=== PATIENT | female | born 1940 | race Caucasian/White ===

== ENCOUNTER 2017-07-02 09:43 | Emergency (ER) | payer MEDICARE, BC ==
[~2017-07-02] VITALS: Ht 160 cm; Wt 62.3 kg
[~2017-07-02 09:43] MED LIST: ALBUTEROL SULFAT8 MG; ALDACTONE 25MG25 M1 PO; ALPHAG-P-0.1-5ML OS; AMLODIPINE BES2.5 MG PO; ASPIRIN 32325 MG/TAB PO; ATROVENT INHALE14 GM IH; BEVESPI AEROS10.7 GM IH; COMBIRESP IH; FLONASE NASAL S16 GM NS; ISOPTIN SR240 MG PO; LISINOPRIL10 MG PO; LUMIGAN EYE GTTS OP; LUMIGAN EYE GTTS OU; NORVASC2.5 MG PO; PERFOROMIS20 MCG/2 M IH; PLAVIX 75MG TAB75 MG PO; PROAIR INHALER; RHINOCORT0.032 MG/1 NS; SIMVASTATIN20 MG PO; SPIRIVA18 MCG IH; THEO-DUR 2200 MG/TAB PO; THEODUR PO; TOPROL XL25 MG PO; VENTOLIN0.09 MG IH; XALATAN EYE DROPS OU; XOPENEX HF0.045 MG/A IH; XOPENEX1.25 MG/3 IH; ZOCOR 40MG40 MG PO; ZOCOR PO
[2017-07-02 11:29] LABS: BASO % 0.9 % (0.0-2.0); EOS # 0.1 (0.0-0.7); EOS % 2.6 % (0-4.0); GRAN # 2.9 (1.4-6.5); GRAN % 63.3 % (42.2-75.2); HEMATOCRIT 38.7 % (37.0-47.0); LYMPH # 1.1 (1.2-3.4); LYMPH % 24.9 % (20.0-51.0); MEAN CELL VOLUME 92 fl (80.0-100.0); MEAN CORPUSCULAR HEMOGLOBIN 31 pg (27.0-31.0); MEAN CORPUSCULAR HGB CONC 34 g/dl (33.0-37.0); MEAN PLATELET VOLUME 9.5 fl (7.4-10.4); MONO # 0.4 (0.1-0.6); MONO % 8.1 % (1.7-9.3); PLATELET COUNT 328 K/mm3 (130-400); RED BLOOD COUNT 4.21 M/mm3 (4.10-5.30); REDCELL DISTRIBUTION WIDTH-CV 13.5 % (11.5-14.5); WHITE BLOOD COUNT 4.6 K/mm3 (4.8-10.8)
[2017-07-02 11:39] LABS: ADJUSTED CALCIUM 9.4 mg/dL (8.4-10.2); ALBUMIN 4.3 gm/dL (3.5-5.0); BILIRUBIN,TOTAL 0.6 mg/dL (0.0-1.0); CALCIUM 9.6 mg/dL (8.4-10.2); CREATININE, serum 0.72 mg/dL (0.52-1.25); POTASSIUM 4.1 mmol/L (3.4-5.0); TOTAL PROTEIN 7.4 gm/dL (6.4-8.2)
[2017-07-02] MEDS ORDERED: PREDNISONE20 MG PO (13:16)
[2017-07-02] MEDS ORDERED: LEVAQUIN 750MG750 M1 PO (13:16)
[2017-07-02 13:38] VITALS: BP 141/71; PULSE 87; TEMP 98.5
== END 2017-07-02 13:50 | disposition home or self-care (01) ==
LOC: COL.ER 09:43
PROVIDERS: Emergency Medicine
DX: R06.02 Shortness of breath (principal); R05 Cough; R91.8 Other nonspecific abnormal finding of lung field; J44.9 Chronic obstructive pulmonary disease, unspecified; Z99.81 Dependence on supplemental oxygen; I10 Essential (primary) hypertension; E78.5 Hyperlipidemia, unspecified; R91.1 Solitary pulmonary nodule; Z95.5 Presence of coronary angioplasty implant and graft
CPT/HCPCS: J7512

== ENCOUNTER → 2017-08-22 | Outpatient (CLI) | payer MEDICARE, BC ==
[~2017-08-22] MED LIST changes: +LEVAQUIN 750MG750 M1 PO; +PREDNISONE20 MG PO
== END ==
LOC: COL.RAD 08:56
DX: I71.02 Dissection of abdominal aorta (principal)
CPT/HCPCS: Q9967

== ENCOUNTER 2018-02-19 12:02 | Day surgery (SDC) | payer MEDICARE, BC ==
[~2018-02-19] VITALS: Ht 160.1 cm; Wt 61.0 kg
[2018-02-19] VITALS (9 sets, daily range): BP systolic 113–149; BP diastolic 51–93; PULSE 72–84; TEMP 97.6
[2018-02-19] MEDS ORDERED: ASPIRIN E.C. 8181 MG PO (12:56)
[2018-02-19] MEDS ORDERED: BROVANA15 MCG/2 M IH (12:56)
[2018-02-19] MEDS ORDERED: INCRUSE EL62.5 MCG/A IH (12:57)
[2018-02-19 12:58] LABS: CALCIUM 9.8 mg/dL (8.4-10.2); HEMATOCRIT 40.9 % (37.0-47.0); MEAN CELL VOLUME 94 fl (80.0-100.0); MEAN CORPUSCULAR HEMOGLOBIN 32 pg (27.0-31.0); MEAN CORPUSCULAR HGB CONC 34 g/dl (33.0-37.0); MEAN PLATELET VOLUME 9.7 fl (7.4-10.4); PLATELET COUNT 346 K/mm3 (130-400); POTASSIUM 3.9 mmol/L (3.4-5.0); RED BLOOD COUNT 4.37 M/mm3 (4.10-5.30); REDCELL DISTRIBUTION WIDTH-CV 12.9 % (11.5-14.5)
[2018-02-19 13:30] LABS: PROTHROMBIN TIME 11.6 SECONDS (9.7-12.8)
[2018-02-19 14:48] LABS: ARTERIAL BLD GAS O2 SATURATION 97.5 % (92-100); ARTERIAL BLD GAS TCO2 CT 24.8; ARTERIAL BLOOD GAS BASE EXCESS -0.9 (-2-2); ARTERIAL BLOOD GAS HCO3 23.6 meq/L (22-26); ARTERIAL BLOOD GAS PCO2 38.7 mmHg (35-45); ARTERIAL BLOOD GAS PO2 112.4 mmHg (80-100)
== END 2018-02-19 18:22 | disposition home or self-care (01) ==
LOC: COL.CAR 12:02
PROVIDERS: Internal Medicine Interventional Cardiology
DX: I25.119 Atherosclerotic heart disease of native coronary artery with unspecified angina pectoris (principal); R94.39 Abnormal result of other cardiovascular function study; J44.9 Chronic obstructive pulmonary disease, unspecified; I10 Essential (primary) hypertension; I08.0 Rheumatic disorders of both mitral and aortic valves; R60.0 Localized edema; Z79.51 Long term (current) use of inhaled steroids; Z82.3 Family history of stroke
CPT/HCPCS: C1760; C1894; J3010; Q9967

== ENCOUNTER 2018-11-09 23:44 | Inpatient (IN) | payer MEDICARE, BC ==
[~2018-11-09] VITALS: Ht 160 cm; Wt 61.4 kg
[~2018-11-09 23:44] MED LIST changes: +ASPIRIN E.C. 8181 MG PO; +BROVANA15 MCG/2 M IH; +CEFTIN500 MG PO; +DOXYCYCLINE HY100 MG PO; +INCRUSE EL62.5 MCG/A IH; +ISOPTIN SR180 M1 PO; +PREDNISONE10 MG PO; +PROAIR HFA0.09 MG/AC IH; -THEO-DUR 2200 MG/TAB PO; +UNIPHYL 400MG400 MG PO
[2018-11-10] VITALS (7 sets, daily range): BP systolic 106–128; BP diastolic 55–79; PULSE 65–125; TEMP 97.4–98
[2018-11-10 00:32] LABS: BASO % 0.2 % (0.0-2.0); EOS # 0.1 (0.0-0.7); EOS % 0.7 % (0-4.0); GRAN # 10.5 (1.4-6.5); HEMATOCRIT 46.9 % (37.0-47.0); HEMOGLOBIN 15.9 g/dl (12.5-16.0); LYMPH # 1.1 (1.2-3.4); LYMPH % 9.1 % (20.0-51.0); MEAN CELL VOLUME 95 fl (80.0-100.0); MEAN CORPUSCULAR HEMOGLOBIN 32 pg (27.0-31.0); MEAN CORPUSCULAR HGB CONC 34 g/dl (33.0-37.0); MEAN PLATELET VOLUME 9.8 fl (7.4-10.4); MONO # 0.7 (0.1-0.6); MONO % 5.7 % (1.7-9.3); PLATELET COUNT 284 K/mm3 (130-400); RED BLOOD COUNT 4.94 M/mm3 (4.10-5.30); REDCELL DISTRIBUTION WIDTH-CV 13.1 % (11.5-14.5)
[2018-11-10 00:42] LABS: ALANINE AMINOTRANSFERASE 38 U/L (9-52); ALBUMIN 4.6 gm/dL (3.5-5.0); ALKALINE PHOSPHATASE 82 U/L (50-136); ANION GAP 10 mmol/L (7-16); AST,SGOT 30 U/L (15-37); BILIRUBIN,TOTAL 0.6 mg/dL (0.0-1.0); BLOOD UREA NITROGEN 21 mg/dL (7-17); CALCIUM 9.9 mg/dL (8.4-10.2); CARBON DIOXIDE 30 mmol/L (22-30); CHLORIDE 95 mmol/L (98-107); CREATININE, serum 0.97 mg/dL (0.52-1.25); GLUCOSE 142 mg/dL (74-106); POTASSIUM 4.8 mmol/L (3.4-5.0); SODIUM 135 mmol/L (137-145); TOTAL PROTEIN 7.6 gm/dL (6.4-8.2)
[2018-11-10 00:48] LABS: ARTERIAL BLD GAS O2 SATURATION 97.2 % (92-100); ARTERIAL BLD GAS TCO2 CT 28.3; ARTERIAL BLOOD GAS BASE EXCESS 1.5 (-2-2); ARTERIAL BLOOD GAS HCO3 26.9 meq/L (22-26); ARTERIAL BLOOD GAS PCO2 45.1 mmHg (35-45); ARTERIAL BLOOD GAS PO2 98.9 mmHg (80-100); ARTERIAL BLOOD GAS pH 7.39 (7.35-7.45)
[2018-11-10 01:03] LABS: TROPONIN-I < 0.012 ng/mL (0.000-0.034)
[2018-11-10] MEDS ORDERED: ATIVAN 0.50.5 MG/TAB PO (02:01)
--- NOTE | 2018-11-10 02:42 | NUR ---
PT HAS RED BLOTCHES ON BILATERAL FEET/TOES. PT REPORTS THE SPOTS TO BE HEALING. PT CURRENTLY RESTING IN BED. WITH HOB ELEVATED 45 DEGREES. NO NEEDS AT THIS TIME. RESPIRATORY THERAPY WITH PT NOW
--- NOTE | 2018-11-10 09:15 | NUR ---
Assessment completed, alert/oriented, vital signs stable, denies pain, patient was just up to restroom and is very short of breath, she reports her activity intolerance is worse than her baseline, I have notified hospitalist of her condition, lungs are diminished with exp wheezing noted, heart RRR, distal pulses are palpable, a.m meds given, will continue to monitor
--- NOTE | 2018-11-10 15:11 | NUR ---
SW met with patient at bedside. Patient reports that she would like to go home upon DC. Patient reports that she was recently here on [place] years and that nothing has change other than her breathing. Patient reports that use of the wheelchair and O2. Patient reports that PCP Dr. Cota. DPOA on file with as proxy for health care. No additonal needs identified. PT denies home health care.
--- NOTE | 2018-11-10 20:30 | NUR ---
Shift assessment complete. Pt resting in bed awake, a&o, cooperative c cares. Pt denies pain, increased SOB or other c/o. INT patent. Tele in place. O2 at 3L per NC (base). Pt denies needs at this time. Call light in reach, will monitor.
[2018-11-11 03:14] VITALS: BP 115/55; PULSE 91; TEMP 97.8
[2018-11-11 06:02] LABS: MEAN CELL VOLUME 95 fl (80.0-100.0); MEAN CORPUSCULAR HGB CONC 34 g/dl (33.0-37.0); MEAN PLATELET VOLUME 9.6 fl (7.4-10.4); PLATELET COUNT 260 K/mm3 (130-400); RED BLOOD COUNT 3.89 M/mm3 (4.10-5.30); REDCELL DISTRIBUTION WIDTH-CV 13.2 % (11.5-14.5)
[2018-11-11 06:11] LABS: HEMATOCRIT 36.8 % (37.0-47.0); HEMOGLOBIN 12.6 g/dl (12.5-16.0); MEAN CORPUSCULAR HEMOGLOBIN 32 pg (27.0-31.0)
[2018-11-11 06:20] LABS: CALCIUM 9.2 mg/dL (8.4-10.2); CREATININE, serum 0.97 mg/dL (0.52-1.25); POTASSIUM 4.7 mmol/L (3.4-5.0)
[2018-11-11 07:25] LABS: BAND 1 % (0-10); LYMPHOCYTE 3 % (20.0-51.0); NEUTROPHILS 94 % (42.0-75.2)
[2018-11-11 07:28] LABS: PLATELET ESTIMATE NORMAL (NORMAL)
[2018-11-11 07:39] VITALS: BP 111/53; PULSE 100; TEMP 98.4
--- NOTE | 2018-11-11 09:00 | NUR ---
Assessment complete. Pt sitting up in bed, A&O x 3. Breath sounds coarse, O2 at 3 L/min via NC. Pt with dyspnea on exertion, intermittently at rest. Pt denies pain. Saline lock IV to left hand without s/s of complications. No further needs reported. Call light in reach.
--- NOTE | 2018-11-11 11:31 | NUR ---
NATALYA met with patient during clinical rounding and spoke with patient and family after. NATALYA provided the different options of [facility]ty hospitals in [place]. [facility]. NATALYA called khadra and made referral. He said he can meet with them tomorrow around 3/330 pm. NATALYA will continue to follow.
[2018-11-11 11:33] VITALS: BP 118/57; PULSE 104; TEMP 97.5
[2018-11-11 15:34] VITALS: BP 129/59; PULSE 115; TEMP 97.7
--- NOTE | 2018-11-11 18:35 | NUR ---
Pt sitting up in bed with family, eating supper, denies pain or needs at this time. Sched abx administered per orders. Call light in reach.
--- NOTE | 2018-11-11 19:20 | NUR ---
PT RINSED OUT MOUTH AFTER TX.
[2018-11-11 20:26] VITALS: BP 140/62; PULSE 110; TEMP 97.8
--- NOTE | 2018-11-11 22:13 | NUR ---
Completed PT assessment and cares; PT tolerated medication and cares well. PT reported bilateral hand cramping; PT A&Ox3, BS active x4, coarse lung sound throught with diminished bases; PT able to toilet x1 assist to bedside commode, all pulses readily palpable. PT able to self administer eye care drops. Daughter in room at beginning of shift, although did not stay night. PT denied further needs at completion of care; Call light in reach at bedside; Will continue to monitor. CDA
--- NOTE | 2018-11-11 22:34 | NUR ---
PT TRILOGY SETUP AND HOOKED UP TO 3L BLED IN. PT STATES SHE WILL PUT HERSELF ON WHEN READY. PT HAS STRONG LOOSE NONPRODUCTIVE COUGH. PT DOING ACAPELLA BUT NOT HELPING.
[2018-11-12 05:12] VITALS: BP 94/55; PULSE 87; TEMP 97.7
--- NOTE | 2018-11-12 06:30 | NUR ---
PT rested well throughout night. Tolerated morning medication well. No significant changes. PT denies further needs at time of exit. Call light placed within reach. CDA
--- NOTE | 2018-11-12 07:26 | NUR ---
Assessment completed, alert/oriented, vital signs stable, patient reports "feeling about the same today", no significatn resp.distress noted while at rest, she does however get dypnic very easily even just with conversation, her lungs are clear but very dimninished all throughout, has a non-productive cough- AFB cx ordered and will collect if a specimen is available, still on basline 3L. o2 and wearing Tr[employer] at night, heart RRR/distal pulses are palpable, she is sitting up in bed an [facility]
[2018-11-12 07:28] VITALS: BP 121/59; PULSE 95; TEMP 97.6
[2018-11-12 08:25] LABS: CALCIUM 9.2 mg/dL (8.4-10.2); CREATININE, serum 0.79 mg/dL (0.52-1.25); POTASSIUM 4.6 mmol/L (3.4-5.0)
--- NOTE | 2018-11-12 10:16 | NUR ---
Follow up visit from the center mgr. No needs right now.
[2018-11-12 11:39] VITALS: BP 119/54; PULSE 107; TEMP 98.4
--- NOTE | 2018-11-12 14:43 | NUR ---
Jason from [facility] here to meet with patient. SW provided clinical update.
--- NOTE | 2018-11-12 14:59 | NUR ---
PT RESTING IN BED ON 3 LPM NC. SPO2 95% O2 TURNED OFF, PT CONVERSING WITH RT APPROX 10 MINUTES WITH SPO2 90-91% PT ASKED TO SIT UP ON EDGE OF BED ON ROOM AIR, SPO2 DROPPED TO 85% O2 BACK ON @ 3 LPM PT BACK IN BED AND GIVEN BREATHING TX. FEELING BETTER. MORE RELAXED AND BREATHING EASIER POST TX. LOOSE CUFF STITCHER COUGH.
[2018-11-12 15:35] VITALS: BP 133/52; PULSE 107; TEMP 98
--- NOTE | 2018-11-12 19:02 | NUR ---
PT RINSED OUT MOUTH AFTER TX.
[2018-11-12 20:40] VITALS: BP 107/80; PULSE 106; TEMP 98
--- NOTE | 2018-11-12 22:30 | NUR ---
Completed assessment and medication administraction for PT; PT A&Ox3, BS active x4, lungs diminished throughout, HRRR, IV SL LT hand, PT educated on D/C to [facility] on [facility] at 1100 with decreased anxiety; PT and family reported understanding, PT able to AMB to bedside commode for toileting, severe intolerance to distance AMB; PT able to tolerate cares and medication well; PT offered snack and continues O2 NC 3L and Trilogy vent at HS; AFB cultures pending. Call light placed within reach; Will continues to monitor. CDA
[2018-11-13 00:16] VITALS: BP 119/62; PULSE 94; TEMP 97.1
[2018-11-13 04:47] VITALS: BP 115/61; PULSE 94; TEMP 98
--- NOTE | 2018-11-13 06:29 | NUR ---
Uneventful night with PT; PT rested well and tolerated medications, treatments, and intermittent interruptions well. PT reminded of pending D/C to [facility] in [place] at 1100. No further needs at time of exit; call light placed within reach; Pend report to dayshift. CDA
--- NOTE | 2018-11-13 08:40 | NUR ---
Pt is A+Ox3, pleasant, denies pain, has SOB at rest. Lungs are wheezey adn tight throughout, 3 L oxygen via NC applied. Pt unable to move much or oxygenation drops. No sputum production with active cough. Physical assessment compelted. INT to LH s redness/swelling, flushes easily/ call light in reach no furthe reeds
[2018-11-13] MEDS ORDERED: MONODOX100 PO (08:53)
[2018-11-13] MEDS ORDERED: NYSTATIN OR100 MU/ML PO (08:54)
[2018-11-13] MEDS ORDERED: ISOPTIN SR180 M1 PO (08:55)
[2018-11-13] MEDS ORDERED: ALDACTONE 25MG25 M1 PO (08:55)
[2018-11-13] MEDS ORDERED: IPRATROPIUM BROM3 M1 IH (08:55)
[2018-11-13] MEDS ORDERED: KLONOPIN 0.5MG0.5 MG PO (08:56)
[2018-11-13] MEDS ORDERED: MUCINEX1200 MG PO (08:56)
[2018-11-13] MEDS ORDERED: PREDNISONE20 MG PO (08:57)
[2018-11-13] MEDS ORDERED: DALIRESP500 MCG PO (08:57)
[2018-11-13 09:01] VITALS: BP 111/48; PULSE 104; TEMP 98
--- NOTE | 2018-11-13 09:23 | NUR ---
SW met with patient to present IM and verbally discuss the contents. Patient was agreeable and signed the form. She reports her family knows she will be transported to [facility] at 11am. SW obtained ambulance forms and called to set up transport time. Patient will be going to room [address] Emre obregon. Nurse to nurse number [phone]. Discharge orders faxed
[2018-11-13 11:22] VITALS: BP 112/58; PULSE 100; TEMP 98.1
[2018-11-13 13:17] VITALS: BP 112/58; PULSE 100; TEMP 98.1
--- NOTE | 2018-11-13 14:23 | NUR ---
pT left facility via EMS, personal belongigns accompanying
--- NOTE | 2018-11-13 14:34 | NUR ---
Report called to Yuan JAMES at [facility] in . All quesitons answered
== END 2018-11-13 14:34 | DRG 191 ==
LOC: COL.ER 23:44 → MEDICAL 11-10 01:06
PROVIDERS: Emergency Medicine; Nurse Practitioner Family; Physician Assistant; ADMIT Internal Medicine Pulmonary Disease
DX: J44.1 Chronic obstructive pulmonary disease with (acute) exacerbation (principal); J96.10 Chronic respiratory failure, unspecified whether with hypoxia or hypercapnia; J96.11 Chronic respiratory failure with hypoxia; B37.0 Candidal stomatitis; F41.9 Anxiety disorder, unspecified; I25.10 Atherosclerotic heart disease of native coronary artery without angina pectoris; I10 Essential (primary) hypertension; E78.5 Hyperlipidemia, unspecified; Z95.5 Presence of coronary angioplasty implant and graft; Z87.891 Personal history of nicotine dependence; R13.10 Dysphagia, unspecified
CPT/HCPCS: 99223-AI; 99232-AI; 99233-AI; A9284; J1650; J1956; J2920; J2930; J7030; J7512

== ENCOUNTER 2021-03-31 12:45 | Outpatient (RCR) | payer MEDICARE, BC ==
[~2021-03-31 12:45] MED LIST changes: +ATIVAN 0.50.5 MG/TAB PO; +DALIRESP500 MCG PO; +IPRATROPIUM BROM3 M1 IH; +KLONOPIN 0.5MG0.5 MG PO; +MONODOX100 PO; +MUCINEX1200 MG PO; +NYSTATIN OR100 MU/ML PO
== END 2021-06-29 | disposition home or self-care (01) ==
LOC: WSST
DX: J96.90 Respiratory failure, unspecified, unspecified whether with hypoxia or hypercapnia (principal)

== ENCOUNTER → 2021-04-06 | Outpatient (CLI) | payer MEDICARE, BC ==
[~2021-04-06] MED LIST changes: +DOXYCYCLINE 10100 MG PO; +LANOXIN 0.120.125 MG PO; +LASIX 20MG TABL20 MG PO; +PREDNISONE50 MG PO; +PULMICORT R1 MG/2 ML IH; +SENNA-LAX8.6 MG PO; +TYLENOL 500MG500 MG PO; +XOPENEX 1.1.25 MG/3 IH
== END ==
LOC: COL.RAD 08:13
DX: J96.90 Respiratory failure, unspecified, unspecified whether with hypoxia or hypercapnia (principal)

== ENCOUNTER 2021-07-13 11:39 | Emergency (ER) | payer MEDICARE, BC ==
[~2021-07-13] VITALS: Ht 160 cm; Wt 49.5 kg
[~2021-07-13 11:39] MED LIST changes: -DOXYCYCLINE 10100 MG PO; -LANOXIN 0.120.125 MG PO; -LASIX 20MG TABL20 MG PO; -PREDNISONE50 MG PO; -PULMICORT R1 MG/2 ML IH; -SENNA-LAX8.6 MG PO; -TYLENOL 500MG500 MG PO; -XOPENEX 1.1.25 MG/3 IH
[2021-07-13 11:57] VITALS: TEMP 98.1
[2021-07-13 13:22] LABS: BASO # 0.1 (0.0-0.2); BASO % 0.9 % (0.0-2.0); EOS # 0.2 (0.0-0.7); GRAN # 3.9 (1.4-6.5); GRAN % 68.3 % (42.2-75.2); HEMATOCRIT 38.4 % (37.0-47.0); HEMOGLOBIN 12.9 g/dl (12.5-16.0); LYMPH # 1.2 (1.2-3.4); LYMPH % 20.2 % (20.0-51.0); MEAN CELL VOLUME 91 fl (80.0-100.0); MEAN CORPUSCULAR HEMOGLOBIN 31 pg (27.0-31.0); MEAN CORPUSCULAR HGB CONC 34 g/dl (33.0-37.0); MEAN PLATELET VOLUME 9.5 fl (7.4-10.4); MONO # 0.4 (0.1-0.6); MONO % 7.4 % (1.7-9.3); PLATELET COUNT 344 K/mm3 (130-400); REDCELL DISTRIBUTION WIDTH-CV 14.2 % (11.5-14.5)
[2021-07-13 13:36] LABS: ALANINE AMINOTRANSFERASE 18 U/L (4-34); ALBUMIN 4.4 gm/dL (3.5-5.0); ALKALINE PHOSPHATASE 125 U/L (50-136); ANION GAP 7 mmol/L (7-16); AST,SGOT 34 U/L (15-37); BILIRUBIN,TOTAL 0.4 mg/dL (0.0-1.0); BLOOD UREA NITROGEN 13 mg/dL (7-17); CALCIUM 9.5 mg/dL (8.4-10.2); CARBON DIOXIDE 31 mmol/L (22-30); CHLORIDE 104 mmol/L (98-107); CREATININE, serum 0.73 (0.52-1.25); GLUCOSE 97 mg/dL (74-106); POTASSIUM 3.9 mmol/L (3.4-5.0); SODIUM 141 mmol/L (137-145); TOTAL PROTEIN 7.5 gm/dL (6.4-8.2)
[2021-07-13 13:51] LABS: TROPONIN-I < 0.012 ng/mL (0.000-0.035)
[2021-07-13] MEDS ORDERED: PREDNISONE50 MG PO (13:53)
[2021-07-13] MEDS ORDERED: DOXYCYCLINE 10100 MG PO (13:54)
[2021-07-13 14:14] VITALS: BP 179/87; PULSE 87
== END 2021-07-13 14:20 | disposition home or self-care (01) ==
LOC: COL.ER 11:39
PROVIDERS: Emergency Medicine
DX: J44.1 Chronic obstructive pulmonary disease with (acute) exacerbation (principal); J18.9 Pneumonia, unspecified organism; I25.10 Atherosclerotic heart disease of native coronary artery without angina pectoris; I10 Essential (primary) hypertension; E78.5 Hyperlipidemia, unspecified; Z20.822 Contact with and (suspected) exposure to COVID-19; Z87.891 Personal history of nicotine dependence; Z79.899 Other long term (current) drug therapy; Z79.52 Long term (current) use of systemic steroids
CPT/HCPCS: J7512

== ENCOUNTER 2021-09-11 20:29 | Inpatient (IN) | payer MEDICARE, BC ==
[~2021-09-11] VITALS: Ht 160 cm; Wt 45.0 kg
[~2021-09-11 20:29] MED LIST changes: +DOXYCYCLINE 10100 MG PO; +PREDNISONE50 MG PO
[2021-09-11 21:29] LABS: BASO % 0.4 % (0.0-2.0); EOS # 0.1 K/mm3 (0.0-0.7); EOS % 1.3 % (0-4.0); GRAN # 7.3 K/mm3 (1.4-6.5); GRAN % 76.1 % (42.2-75.2); HEMOGLOBIN 13.2 g/dl (12.5-16.0); LYMPH # 1.2 K/mm3 (1.2-3.4); LYMPH % 11.9 % (20.0-51.0); MEAN CELL VOLUME 93 fl (80.0-100.0); MEAN CORPUSCULAR HEMOGLOBIN 31 pg (27.0-31.0); MEAN CORPUSCULAR HGB CONC 33 g/dl (33.0-37.0); MEAN PLATELET VOLUME 8.9 fl (7.4-10.4); PLATELET COUNT 624 K/mm3 (130-400); RED BLOOD COUNT 4.32 M/mm3 (4.10-5.30); REDCELL DISTRIBUTION WIDTH-CV 14.6 % (11.5-14.5)
[2021-09-11 21:48] LABS: ALBUMIN 3.1 gm/dL (3.4-4.8); BILIRUBIN,TOTAL 0.3 mg/dL (0.2-1.2); CALCIUM 9.7 mg/dL (8.4-10.2); CREATININE, serum 1.12 mg/dL (0.57-1.11); TOTAL PROTEIN 6.9 gm/dL (6.2-8.1)
[2021-09-11 21:53] LABS: TROPONIN-I 0.013 ng/mL (0.00-0.033)
[2021-09-11 23:30] LABS: ARTERIAL BLD GAS O2 SATURATION 97.5 % (92-100); ARTERIAL BLD GAS TCO2 CT 22.6; ARTERIAL BLOOD GAS BASE EXCESS -2.4 (-2-2); ARTERIAL BLOOD GAS HCO3 21.6 meq/L (22-26); ARTERIAL BLOOD GAS PCO2 34.5 mmHg (35-45); ARTERIAL BLOOD GAS PO2 102.7 mmHg (80-100); ARTERIAL BLOOD GAS pH 7.41 (7.35-7.45)
[2021-09-12 01:09] VITALS: BP 142/59; PULSE 110; TEMP 98.3
[2021-09-12] MEDS ORDERED: LANOXIN 0.120.125 MG PO (01:49)
[2021-09-12] MEDS ORDERED: ALDACTONE 25MG25 M1 PO (01:50)
[2021-09-12 03:37] VITALS: BP 114/58; PULSE 89; TEMP 98.6
[2021-09-12 06:58] LABS: HEMOGLOBIN 12.1 g/dl (12.5-16.0); MEAN CELL VOLUME 91 fl (80.0-100.0); MEAN CORPUSCULAR HEMOGLOBIN 30 pg (27.0-31.0); MEAN CORPUSCULAR HGB CONC 33 g/dl (33.0-37.0); MEAN PLATELET VOLUME 9.5 fl (7.4-10.4); PLATELET COUNT 607 K/mm3 (130-400); RED BLOOD COUNT 4.01 M/mm3 (4.10-5.30); REDCELL DISTRIBUTION WIDTH-CV 14.6 % (11.5-14.5)
[2021-09-12 07:01] LABS: HEMATOCRIT 36.5 % (37.0-47.0)
[2021-09-12 07:13] LABS: CALCIUM 9.1 mg/dL (8.4-10.2); CREATININE, serum 0.73 mg/dL (0.57-1.11); POTASSIUM 4.4 mmol/L (3.5-4.5)
--- NOTE | 2021-09-12 07:23 | NUR ---
MILLIE BLACK CALLED FOR UPDATE. VERBAL CONSENT OBTAINED FROM PT TO GIVE INFORMATION. PRIVACY CODE GIVEN FOR FUTURE REFENCE. UPDATE GIVEN TO BEST OF ABILITY.
[2021-09-12 07:40] LABS: NEUTROPHILS 87 % (42.0-75.2)
[2021-09-12 07:41] LABS: LYMPHOCYTE 12 % (20.0-51.0); PLATELET ESTIMATE INCREASED (NORMAL)
[2021-09-12 08:12] VITALS: BP 118/56; PULSE 102; TEMP 97.8
--- NOTE | 2021-09-12 10:45 | NUR ---
PT ALERT AND ORIENTED. PT HAS DIMISHED LUNGS IN ALL LOBES, DENIES SOA AT REST. PT REPORTS SOME SOA WITH EXERTION. PT REPORTS SIGNIFICANT WEIGHT LOSS. PT HAS RED COCCYX, STATES WILL MOVE INDEPENDENTLY, REFUSING PILLOW TO ALLEVIATE PRESSURE. PT HAS REDDENED FEET, PULSES 2+, CAP REFILL <3S. PT IV INFILTRATION NOTED. NO OTHER NEEDS AT THIS TIME.
[2021-09-12 12:28] VITALS: BP 112/62; PULSE 90; TEMP 98.1
--- NOTE | 2021-09-12 14:29 | NUR ---
house worker met with patient at bedside to discuss discharge plan. Patient reports that she lives at home with her Noble ([phone]). Patient reports that up until a few weeks ago she was fully independent with her activities of daily living. States her granddaughter lives next door to them and has been coming over to help with ADL's. Patient states that she only uses a walker when she leaves the house and that it is used more to help carry her portable concentrator around. Patient does use NC O2 and a Trilogy which is supplied through [facility]. PCP is Dr. Cota and she see's as a advertising account manager. She utilizes [facility] for perscription needs with no difficulty to cost. Patient does have a DPOA- established and the hospital has a copy of it on file listing her and her daughter Yoli ([phone]) as her agents. Patient reports that she has two daughters that live in [facility] along with her granddaughter that lives next door to her. Feels like they support her and her enough that she will not need HH services. Does report to sending her to [facility] a few years ago and is open to going back there, but will need to speak with her family. Patient used to receive her oxygen through [facility], then switch to [facility]. She has been increasingly unhappy with [facility] and when her Trilogy malfunctioned, she made the decision that she wants to switch back to [facility] for her O2 supplies. Mannie with [facility] contacted and he informed me that the patient's daughter had stopped by this morning to discuss the desire to change companies. Brian with [facility] has plans to stop by and speak with Alanis Christensen this afternoon. Discharge plan: Pending PT/OT issa
--- NOTE | 2021-09-12 14:34 | NUR ---
PT STATES HAVING SOME MILD SOA, CHECKED SPO2 AT 97% WITH 3L O2. PT REPORTS HAVING TALKED EXTENSIVELY WITH SOCIAL WORK, FILTRATION OPERATOR, AND VISITOR. PT REQUESTING TO REST AT THIS TIME. EDUCATED TO NOTIFY THIS RN IF SOA CONTINUES.
--- NOTE | 2021-09-12 14:37 | NUR ---
Initial visit; Patient thanked Subassembler for looking in on her and offering God's blessings, prayer and keeping her in Subassembler's prayers.
--- NOTE | 2021-09-12 15:35 | NUR ---
PT STATES HAVING SOA, SPO2 98% ON 3L O2. PT REQUESTING ANXIETY MEDICATIONS. GIVEN PER ORDERS. WILL CONTINUE TO MONITOR.
[2021-09-12 16:42] VITALS: BP 138/54; PULSE 103; TEMP 98.2
--- NOTE | 2021-09-12 19:10 | NUR ---
Pt continuing on plan of care. Pt SOA monitored. Respiratory therapy notified to help manage SOA. Pt family visited this shift. Pt vital signs remained stable, some sinus tachycardia noted. No significant changes noted in pt this shift. PRN anxiety medications given per orders. Pt able to express needs and converse freely.
[2021-09-12 19:36] VITALS: BP 131/66; PULSE 100; TEMP 98.4
--- NOTE | 2021-09-12 20:33 | NUR ---
Assessment complete. Patient is alert and oriented with no complaints of pain. She wears 3 liters 02; lung sounds are coarse throughout. Pt has steady gait with SBA to the restroom. No edema is noted. Comfort measures provided and call light in reach.
[2021-09-13] VITALS (7 sets, daily range): BP systolic 105–146; BP diastolic 51–64; PULSE 78–98; TEMP 97.6–98.1
[2021-09-13 07:09] LABS: HEMOGLOBIN 11.8 g/dl (12.5-16.0); MEAN CELL VOLUME 93 fl (80.0-100.0); MEAN CORPUSCULAR HEMOGLOBIN 31 pg (27.0-31.0); MEAN CORPUSCULAR HGB CONC 33 g/dl (33.0-37.0); MEAN PLATELET VOLUME 9.7 fl (7.4-10.4); PLATELET COUNT 643 K/mm3 (130-400); RED BLOOD COUNT 3.86 M/mm3 (4.10-5.30); REDCELL DISTRIBUTION WIDTH-CV 14.6 % (11.5-14.5)
[2021-09-13 07:11] LABS: HEMATOCRIT 35.7 % (37.0-47.0)
[2021-09-13 07:33] LABS: ALBUMIN 2.8 gm/dL (3.4-4.8); CALCIUM 9.3 mg/dL (8.4-10.2); CREATININE, serum 0.82 mg/dL (0.57-1.11); MAGNESIUM 2.2 mg/dL (1.6-2.6); PHOSPHOROUS 3.2 mg/dL (2.3-4.7); POTASSIUM 4.3 mmol/L (3.5-4.5)
[2021-09-13 07:46] LABS: BAND 11 % (0-10); LYMPHOCYTE 1 % (20.0-51.0); NEUTROPHILS 87 % (42.0-75.2); PLATELET ESTIMATE INCREASED (NORMAL)
--- NOTE | 2021-09-13 12:50 | NUR ---
PT ALERT AND ORIENTED. PT EXPRESSED ANXIETY THIS AM WITH PROCEDURES AND DOCTOR'S VISITS. PT GIVEN ANXIETY MEDICATIONS PER ORDERS. LUNGS CLEAR TO AUSCULTATION. PT HAS REDDENED FEET, BLANCHABLE, MILD FLAKING NOTED. PT CAP REFILL <3S. pT HAS 1+ PULSES IN DORSALIS PEDIS BILATERALLY. RADIAL AND POSTERIOR TIBIAL 2+ BIALTERALLY. PT STATES EDEMA IN FEET IS IMPROVING. PT FAMILY VISITED THIS AM AT TIME OF ASSESSMENT.
--- NOTE | 2021-09-13 17:01 | NUR ---
Pt continuing on plan of care. Pt family visited this shift. No significant changes noted in pt status. Pt able to ambulate in room. Pt pain managed with prn medications per orders. Pt family asking to be updated with plan of care if any changes should occur. Pt daughter, Yoli kylie([phone]) and Sheila kylie([phone]).
--- NOTE | 2021-09-13 18:11 | NUR ---
PT MISSED HAT FOR INTAKE AND OUTPUT MONITORING. WILL ATTEMPT TO READJUST HAT FOR ACCURATE COLLECTION.
--- NOTE | 2021-09-13 20:00 | NUR ---
Assessment complete. Patient is alert and oriented with no complaints of pain. She wears 3 liters oxygen and is tolerating well. No new concerns at this time. Patient is aware of potential transfer to [facility] in once a bed becomes available. Medications administered and comfort measures provided. Call light in reach.
[2021-09-14 04:23] VITALS: BP 123/58; PULSE 65; TEMP 97.7
[2021-09-14 07:03] LABS: HEMOGLOBIN 11.4 g/dl (12.5-16.0); MEAN CELL VOLUME 91 fl (80.0-100.0); MEAN CORPUSCULAR HEMOGLOBIN 31 pg (27.0-31.0); MEAN CORPUSCULAR HGB CONC 34 g/dl (33.0-37.0); MEAN PLATELET VOLUME 9.8 fl (7.4-10.4); PLATELET COUNT 594 K/mm3 (130-400); RED BLOOD COUNT 3.74 M/mm3 (4.10-5.30); REDCELL DISTRIBUTION WIDTH-CV 14.6 % (11.5-14.5)
[2021-09-14 07:11] LABS: CALCIUM 9.2 mg/dL (8.4-10.2); CREATININE, serum 0.8 mg/dL (0.57-1.11); POTASSIUM 3.9 mmol/L (3.5-4.5)
[2021-09-14 07:41] VITALS: BP 148/59; PULSE 82; TEMP 98
[2021-09-14 07:41] LABS: BAND 11 % (0-10); LYMPHOCYTE 9 % (20.0-51.0); NEUTROPHILS 79 % (42.0-75.2); PLATELET ESTIMATE INCREASED (NORMAL)
[2021-09-14 11:55] VITALS: BP 133/55; PULSE 84; TEMP 97.8
--- NOTE | 2021-09-14 14:37 | NUR ---
PT RETURNED FROM [facility], THE FLUID WAS IN SMALL POCKETS SO US TECH STATED THAT THEY WERE ONLY ABLE TO GET 19ML OFF FOR THE LABS, BUT NO MORE. REPORTED TO JACKELYN JONES. NO OTHER CONCERNS AT THIS TIME.
[2021-09-14 14:50] LABS: PLEURAL FLUID RBC 55000 /mm3 (0-0); PLEURAL FLUID WBC 1179 /mm3
[2021-09-14 14:56] LABS: PLEURAL FLUID APPEARANCE BLOODY; PLEURAL FLUID COLOR RED
--- NOTE | 2021-09-14 16:22 | NUR ---
3Rd Grade Teacher attended clinical rounds with the team and patient to have thoracentesis today. SW will continue to follow for recommendations. PT/OT ordered.
[2021-09-14 16:53] VITALS: BP 132/51; PULSE 100; TEMP 98
--- NOTE | 2021-09-14 20:18 | NUR ---
Assessment complete. Patient is alert and oriented. She is sitting on the edge of the bed and appears SOA; 02 at 3 liters and satting 94%. Patient requests a clonipin for anxiety which is administered now. Comfort measures provided and stayed with patient until she relaxes. Call light in reach.
[2021-09-15 01:37] VITALS: BP 113/56; PULSE 69; TEMP 97.4
[2021-09-15 01:56] VITALS: BP 122/55; PULSE 58; TEMP 97.4
[2021-09-15 06:45] LABS: HEMOGLOBIN 11.5 g/dl (12.5-16.0); MEAN CELL VOLUME 92 fl (80.0-100.0); MEAN CORPUSCULAR HEMOGLOBIN 31 pg (27.0-31.0); MEAN CORPUSCULAR HGB CONC 33 g/dl (33.0-37.0); MEAN PLATELET VOLUME 9.8 fl (7.4-10.4); PLATELET COUNT 583 K/mm3 (130-400); RED BLOOD COUNT 3.73 M/mm3 (4.10-5.30); REDCELL DISTRIBUTION WIDTH-CV 14.7 % (11.5-14.5)
[2021-09-15 06:49] LABS: HEMATOCRIT 34.4 % (37.0-47.0)
[2021-09-15 07:07] LABS: CALCIUM 9.2 mg/dL (8.4-10.2); CREATININE, serum 0.74 mg/dL (0.57-1.11); POTASSIUM 3.7 mmol/L (3.5-4.5)
[2021-09-15 07:19] VITALS: BP 143/74; PULSE 80; TEMP 97.5
--- NOTE | 2021-09-15 07:22 | NUR ---
REPORT RECIEVED FROM ERIKA SANCHEZ. NO SIGNS OF DISTRESS. NO COMPLAINTS OF PAIN OR DYSPNEA. CALL LIGHT WITHIN REACH
[2021-09-15 07:26] LABS: BAND 7 % (0-10); LYMPHOCYTE 4 % (20.0-51.0); NEUTROPHILS 87 % (42.0-75.2); PLATELET ESTIMATE INCREASED (NORMAL)
--- NOTE | 2021-09-15 09:45 | NUR ---
PT ASSESSED. DAUGHTER AT BEDSIDE. NO COMPLAINTS OF PAIN OR DYSPNEA. NO SIGNS OF DISTRESS. CALL LIGHT WITHIN REACH
[2021-09-15] MEDS ORDERED: PREDNISONE10 MG PO ×2 (10:31)
[2021-09-15] MEDS ORDERED: CEFTIN500 MG PO (10:32)
[2021-09-15] MEDS ORDERED: DOXYCYCLINE 10100 MG PO (10:32)
--- NOTE | 2021-09-15 10:42 | NUR ---
Senior Center Director attended clinical rounds with the team and patient to discharge home today. SW met with patient to follow up on discharge plan. Patient states she does not feel she needs Home Health at this time as she has plenty of family support. Patient states she also has an upcoming appointment at [facility] that she needs to get to. SW presented and reviewed IM form with patient who verbalized understanding and provided signature. SW placed form in chart and provided copy to patient.
[2021-09-15 11:13] VITALS: BP 142/59; PULSE 97; TEMP 97.5
--- NOTE | 2021-09-15 15:20 | NUR ---
PT DISCHARGED. IV REMOVED. EDUCATED ON NEW MEICATIONS AND FOLLOW UP APPOINTMENTS. NO QUESTIONS OR CONCERNS.
== END 2021-09-15 15:21 | disposition home or self-care (01) | DRG 193 ==
LOC: COL.ER 20:29 → MEDICAL 22:56
PROVIDERS: Emergency Medicine; Internal Medicine; Physician Assistant; Student in an Organized Health Care Education/Training Program; ADMIT Internal Medicine
PROC: 0W9B3ZZ Drainage of Left Pleural Cavity, Percutaneous Approach (ICD-10-PCS; principal; 2021-09-14)
DX: J18.9 Pneumonia, unspecified organism (principal); E43 Unspecified severe protein-calorie malnutrition; C34.90 Malignant neoplasm of unspecified part of unspecified bronchus or lung; J44.1 Chronic obstructive pulmonary disease with (acute) exacerbation; J91.0 Malignant pleural effusion; J96.12 Chronic respiratory failure with hypercapnia; J96.11 Chronic respiratory failure with hypoxia; Z68.1 Body mass index [BMI] 19.9 or less, adult; J44.0 Chronic obstructive pulmonary disease with (acute) lower respiratory infection; I25.10 Atherosclerotic heart disease of native coronary artery without angina pectoris; Z95.5 Presence of coronary angioplasty implant and graft; I10 Essential (primary) hypertension; F41.9 Anxiety disorder, unspecified; E78.5 Hyperlipidemia, unspecified; Z98.51 Tubal ligation status
CPT/HCPCS: 99223-AI; 99233-AI; 99239; J0696; J1644; J2930; Q9967

== ENCOUNTER 2021-09-18 21:00 | Observation (INO) | payer MEDICARE, BC ==
[~2021-09-18] VITALS: Ht 160 cm; Wt 45.4 kg
[~2021-09-18 21:00] MED LIST changes: +LANOXIN 0.120.125 MG PO
[2021-09-18 21:55] LABS: BASO % 0.2 % (0.0-2.0); EOS # 0.1 K/mm3 (0.0-0.7); EOS % 0.3 % (0-4.0); GRAN # 15.1 K/mm3 (1.4-6.5); GRAN % 87.1 % (42.2-75.2); HEMATOCRIT 44.3 % (37.0-47.0); HEMOGLOBIN 15.1 g/dl (12.5-16.0); LYMPH # 0.8 K/mm3 (1.2-3.4); LYMPH % 4.8 % (20.0-51.0); MEAN CELL VOLUME 90 fl (80.0-100.0); MEAN CORPUSCULAR HEMOGLOBIN 31 pg (27.0-31.0); MEAN CORPUSCULAR HGB CONC 34 g/dl (33.0-37.0); MEAN PLATELET VOLUME 9.2 fl (7.4-10.4); MONO # 1.1 K/mm3 (0.1-0.6); MONO % 6.2 % (1.7-9.3); PLATELET COUNT 572 K/mm3 (130-400); RED BLOOD COUNT 4.94 M/mm3 (4.10-5.30); REDCELL DISTRIBUTION WIDTH-CV 14.6 % (11.5-14.5)
[2021-09-18 22:13] LABS: ALBUMIN 3.4 gm/dL (3.4-4.8); BILIRUBIN,TOTAL 0.4 mg/dL (0.2-1.2); CALCIUM 10.5 mg/dL (8.4-10.2); CREATININE, serum 0.97 mg/dL (0.57-1.11); POTASSIUM 3.8 mmol/L (3.5-4.5); TOTAL PROTEIN 7.3 gm/dL (6.2-8.1)
[2021-09-18 22:45] LABS: COLLECTION METHOD CLEAN CATCH
[2021-09-18 22:53] LABS: PH 6 (5-8); SQUAMOUS EPITHELIAL 0-2 /hpf (0-10); URINE APPEARANCE Clear (CLEAR/HAZY); URINE BACTERIA None Seen (NONE SEEN); URINE BILIRUBIN Negative (NEGATIVE); URINE BLOOD Negative (NEGATIVE); URINE COLOR Straw (YELLOW); URINE GLUCOSE Negative (NEGATIVE); URINE KETONE Negative (NEGATIVE); URINE LEUKOCYTE ESTERASE Negative (NEGATIVE); URINE NITRATE Negative (NEGATIVE); URINE PROTEIN(semi-quant) Negative (NEGATIVE); URINE RBC 0-2 /hpf (0-2); URINE UROBILINOGEN Negative (NEGATIVE)
[2021-09-19] MEDS ORDERED: PULMICORT R1 MG/2 ML IH (00:12)
[2021-09-19] MEDS ORDERED: XOPENEX 1.1.25 MG/3 IH (00:13)
[2021-09-19 01:45] VITALS: BP 182/81; PULSE 109; TEMP 97.6
[2021-09-19] MEDS ORDERED: SENNA-LAX8.6 MG PO (02:25)
[2021-09-19] MEDS ORDERED: TYLENOL 500MG500 MG PO (02:26)
--- NOTE | 2021-09-19 03:43 | NUR ---
81 yo female admitted for further care and management of acute on chronic respiratory failure secondary to COPD with exacerbation and also concern for possible superimposed pneumonia. ht 63in wt 45.5kg SCr 0.97 with estimated CrCl~30 ml/min half life 16.1 hours Plan: Will give an initial loading dose of vancomycin 1000 mg x1 (22 mg/kg); followed by a maintenance regimen of vancomycin 500 mg q12h to target a goal trough of 15-20 mcg/ml. Will follow patient's renal function, micro data, and vancomycin levels as indicated to assess for any necessary changes to regimen. Thank you for this dosing consult.
[2021-09-19 04:32] VITALS: BP 120/56; PULSE 109; TEMP 97.7
--- NOTE | 2021-09-19 05:15 | NUR ---
PT ARRIVED TO FLOOR FROM ED APPROXIMATELY 0130. PT IS PLEASANT AND COOPERATIVE. PT IS A DECENT HISTORIAN. PT ORIENTATED TO ROOM. CALL LIGHT IN REACH, BED IN LOWEST POSITION, WHEELS LOCKED, PT REFUSED GOWN AT THIS TIME. NO OTHER NEEDS
--- NOTE | 2021-09-19 05:17 | NUR ---
APPROXIMATELY 0345 PT ASKED FOR BIPAP TO USE TO SLEEP AT NIGHT. STATED MARCI KAYLAN STATED WE WOULD GET ONE FOR HER. THIS RN TALKED TO RT ABOUT BIPAP, WAS INFORMED THAT CURRENTLY DO NOT HAVE ANY AVAILABLE BIPAPS TO USE. INFORMED PT OF THIS, SHE STATED IT WAS OK, AND THIS RN ASKED IF ANYONE COULD BRING HER TRILOGY IN FROM HOME TO USE DURING STAY. PT STATED TO CALL HER DAUGHTER, MILLIE. THIS RN CALLED DAUGHTER, INFORMED HER OF WHAT WAS HAPPENING TO INCLUDE PT SEEMING TO BE ANXIOUS. HER DAUGHTER STATED THAT THIS IS NORMAL, GIVE KLONDIPINE TO WORK AND CALL HER BACK IF SHE INSISTS ON TRILOGY TONIGHT. THIS RN ASSISTED PT TO RESTROOM. PT STATED THAT SHE COULD NOT BREATH AND WAS UNABLE TO FINISH HER BOWEL MOVEMENT DUE TO THIS. THIS RN TOOK HER SPO2 AND PULSE, NOTED 95% ON 3 L AND HEART RATE WAS IN THE 130s. THIS RN ASSISTED PT IN STANDING, PULLING UP UNDERWEAR AND TAKING OFF PANTS BECAUSE PT STATED SHE WAS HOT. ASSISTED PT BACK TO BED AND PT STARTED BREATHING MORE QUICKLY AND SHALLOW. PT ASKED FOR KLONDIPINE. THIS RN GAVE 0.25 MG PER MAR TO PT. PT REQUESTED THIS RN TO CALL DAUGHTER BACK AND BRING TRILOGY NOW. THIS RN TOLD PT THAT THE MEDICATION NEEDED TIME TO WORK, PT EVENTUALLY LAID BACK IN BED, HEART RATE DECREASED AND PT FELL ASLEEP. DAUGHTER STATED PT WILL BRING TRILOGY IN MORNING. WILL CONTINUE TO MONITOR PT.
--- NOTE | 2021-09-19 06:38 | NUR ---
PT FELL ASLEEP AFTER CLONIPINE, PT STATED SHE FELT MUCH BETTER AND APPRECIATED GIVING TIME FOR MEDICATION TO WORK. PT STATED THAT SHE KNOWS SHE CAN LOSE CONTROL IN THOSE MOMENTS, AND TO PASS ALONG THIS INFORMATION. INFORMED PT THAT DAUGHTER STATED SHE WOULD BE [facility] 0[facility]. PT EXPRESSED RELIEF.
[2021-09-19 06:39] LABS: HEMATOCRIT 40.4 % (37.0-47.0); HEMOGLOBIN 13.3 g/dl (12.5-16.0); MEAN CELL VOLUME 91 fl (80.0-100.0); MEAN CORPUSCULAR HEMOGLOBIN 30 pg (27.0-31.0); MEAN CORPUSCULAR HGB CONC 33 g/dl (33.0-37.0); MEAN PLATELET VOLUME 9.9 fl (7.4-10.4); PLATELET COUNT 487 K/mm3 (130-400); RED BLOOD COUNT 4.42 M/mm3 (4.10-5.30); REDCELL DISTRIBUTION WIDTH-CV 14.6 % (11.5-14.5)
[2021-09-19 06:57] LABS: CALCIUM 9.3 mg/dL (8.4-10.2); CREATININE, serum 0.78 mg/dL (0.57-1.11); POTASSIUM 3.3 mmol/L (3.5-4.5)
[2021-09-19 07:42] LABS: BAND 2 % (0-10); LYMPHOCYTE 1 % (20.0-51.0); NEUTROPHILS 97 % (42.0-75.2); PLATELET ESTIMATE INCREASED (NORMAL)
[2021-09-19 08:19] VITALS: BP 121/45; PULSE 101; TEMP 97.7
--- NOTE | 2021-09-19 08:46 | NUR ---
Scheduled medications given. Shift assessment preformed. Patient currently requiring 3L of O2 via nasal cannula. Dyspnea at rest noted. Lung sounds severely diminished. Patient scaling and flaking of feet noted. Generalized bruising also noted. Patient denies any pain, discomfort, or further needs at this time. Call light in reach. VSS. Patient A&O.
[2021-09-19 12:22] VITALS: BP 121/54; PULSE 91; TEMP 97.9
--- NOTE | 2021-09-19 14:19 | NUR ---
First visit from the production line welder. No needs right now.
[2021-09-19 16:51] VITALS: BP 133/35; PULSE 110; TEMP 97.6
--- NOTE | 2021-09-19 19:49 | NUR ---
Patient has had an uneventful day. Currenlty requiring 3L of O2 via nasal cannula. VSS. Patient A&O. Call light in reach.
[2021-09-19 21:00] VITALS: BP 116/53; PULSE 99; TEMP 97.6
[2021-09-20 00:32] VITALS: BP 107/53; PULSE 75; TEMP 97.6
[2021-09-20 04:51] VITALS: BP 115/48; PULSE 77; TEMP 97.7
[2021-09-20 07:08] LABS: BASO % 0.1 % (0.0-2.0); EOS # 0.2 K/mm3 (0.0-0.7); EOS % 1.2 % (0-4.0); GRAN # 13.8 K/mm3 (1.4-6.5); GRAN % 83.3 % (42.2-75.2); HEMOGLOBIN 11.9 g/dl (12.5-16.0); LYMPH # 1.1 K/mm3 (1.2-3.4); LYMPH % 6.8 % (20.0-51.0); MEAN CELL VOLUME 90 fl (80.0-100.0); MEAN CORPUSCULAR HEMOGLOBIN 30 pg (27.0-31.0); MEAN CORPUSCULAR HGB CONC 34 g/dl (33.0-37.0); MEAN PLATELET VOLUME 9.5 fl (7.4-10.4); MONO # 1.2 K/mm3 (0.1-0.6); MONO % 7.3 % (1.7-9.3); PLATELET COUNT 407 K/mm3 (130-400); RED BLOOD COUNT 3.91 M/mm3 (4.10-5.30); REDCELL DISTRIBUTION WIDTH-CV 15.2 % (11.5-14.5)
[2021-09-20 07:16] LABS: CALCIUM 9.7 mg/dL (8.4-10.2); CREATININE, serum 0.75 mg/dL (0.57-1.11); POTASSIUM 3.9 mmol/L (3.5-4.5)
[2021-09-20 07:19] LABS: HEMATOCRIT 35.3 % (37.0-47.0)
--- NOTE | 2021-09-20 08:39 | NUR ---
Patient resting in bed. Patient had a few bites of breakfast, reports low appetite. When asked about pain, she does deny at this time. States she did have pain after biopsy, but it is improving. Reports her She reports overall feeling better. Edema in her legs resolved. Lung sounds very diminished. She reports being weak, will encourage activity today.
[2021-09-20 08:42] VITALS: BP 120/46; PULSE 96; TEMP 98.5
--- NOTE | 2021-09-20 09:08 | NUR ---
Patient up to the bathroom, standby assist. Dyspnea with exertion. Allyven foam to coccyx,reddness noted. Not open. Patient reports she is trying to reposition herself frequently in bed. She is wanting to rest, I offered to assist with hygiene. She states she had a long night. Patient was given Prn Klonopin per request to prevent anxiety. OT now working with patient. Will monitor.
[2021-09-20] MEDS ORDERED: PREDNISONE10 MG PO (09:29)
[2021-09-20] MEDS ORDERED: CEFTIN500 MG PO (09:45)
[2021-09-20] MEDS ORDERED: DOXYCYCLINE 10100 MG PO (09:46)
[2021-09-20] MEDS ORDERED: LASIX 20MG TABL20 MG PO (09:46)
--- NOTE | 2021-09-20 10:02 | NUR ---
Patient feeling overwhelmed. Hospitalist team rounded. She is feeling unsure about disharge. Social work assisting with discharge planning. Patient daughter called to reviewed. I suggested patient bring in medications and i could throughly go over he medications list & pill and instruct her on what to take and when. She reports last time she left she did not understand her medication list.
--- NOTE | 2021-09-20 10:25 | NUR ---
NATALYA attended clinical rounds. The hospitalist is ready to discharge the patient today. The hospitalist discussed home health vs SNF. The patient declined rehab. She states that she wants to go home. She also declined home health. She reports that she would like to get home with her and see what they can manage. She expressed concerns about her meds and states that she was unsure how t0 set them up when she got home last time. The team informed her how home health can help with this. The patient still declined. She reports that her daughter, Yoli, can help set up her meds and that Yoli could bring them all in today for the RN to help set up her meds. The patient's RN contacted Yoli and Yoli is on her way up to the hospital now. NATALYA then followed up with the patient to discuss discharge plan. The patient lives in [place] with her , Noble (ph#[phone]). She reports independence with ADLs and has a walker, home oxygen, and a trilogy from [facility]. The patient's PCP is Dr. Pierre Cota and she receives her medications [facility]. She reports no difficulties obtaining her meds. The patient's DPOA-HC is in EMR and it designates her and daughter, Yoli (ph#[phone]). NATALYA then reviewed SNF vs home health again. The patient declined rehab. She reports that she wants to go home, but would be open to home health now. She reports that she had home health in the past and believes she used [facility]. She would like to use them again. NATALYA contacted and faxed a referral to Rosemary at [facility]. Rosemary reports that they are able to accept the patient for services. Rosemary reports that they will try and go out and see the patient tomorrow, if not tomorrow then if would be on Sunday, due to giving on . The patient's daughter, Yoli, then arrived to the hospital. Yoli is in agreement to the plan. Yoli reports that her sister is on her way up to the hospital now with the patient's meds for them to sort and go through them and to set up the patient's pill box. The patient's RN was present during this conversation. The patient is to discharge back home with her today, 09/20, with home health services for shelter/PT/OT from [facility]. NATALYA notified and faxed discharge orders to Rosemary at [facility]. No additional needs at this time.
--- NOTE | 2021-09-20 12:15 | NUR ---
Patient ready for discharge. Her family brought in home medications and medication box. I extensively reviewed med list with patient and family. Patient med box set up with patient for the next week day and night, I also set up predisone taper for the following week. I wasted the extra antibioitcs patient will not need. I marked and highlighted list and reviewed with patient & her daughters. Patient seems understanding & glad to be getting home. Social work set up home health. Patient wheeled out with all belongings & home O2. Her daughter taking her home. She is glad to go sit in her recliner.
== END 2021-09-20 12:36 | disposition home health service (06) ==
LOC: COL.ER 21:00 → MEDICAL 23:41
PROVIDERS: Nurse Practitioner Family; Personal Emergency Response Attendant; ADMIT Student in an Organized Health Care Education/Training Program
DX: J44.1 Chronic obstructive pulmonary disease with (acute) exacerbation (principal); J90 Pleural effusion, not elsewhere classified; R91.8 Other nonspecific abnormal finding of lung field; J96.12 Chronic respiratory failure with hypercapnia; J18.9 Pneumonia, unspecified organism; R60.0 Localized edema; I31.3 Pericardial effusion (noninflammatory); E78.5 Hyperlipidemia, unspecified; I10 Essential (primary) hypertension; I25.10 Atherosclerotic heart disease of native coronary artery without angina pectoris; F41.9 Anxiety disorder, unspecified; E43 Unspecified severe protein-calorie malnutrition; Z68.1 Body mass index [BMI] 19.9 or less, adult; Z95.818 Presence of other cardiac implants and grafts; Z79.899 Other long term (current) drug therapy; Z87.891 Personal history of nicotine dependence
CPT/HCPCS: G0378; J0360; J0456; J0696; J1650; J1940; J2543; J2920; J2930; J3370; J7050; J7512

== ENCOUNTER → 2021-10-07 | Outpatient (CLI) | payer MEDICARE, BC ==
[~2021-10-07] MED LIST changes: +LASIX 20MG TABL20 MG PO; +PULMICORT R1 MG/2 ML IH; +SENNA-LAX8.6 MG PO; +TYLENOL 500MG500 MG PO; +XOPENEX 1.1.25 MG/3 IH
== END ==
LOC: ZCOL.LAB 09:24
DX: Z20.822 Contact with and (suspected) exposure to COVID-19 (principal)